=== PATIENT | female | born 1980 | race Hispanic/Latino ===

== ENCOUNTER 2017-11-12 20:10 | Emergency (ER) | payer MEDICAID ==
[2017-11-12 22:01] LABS: #Eosinphils 0.2 thou/uL (0.0-0.7); #Lymphocytes 2.4 thou/uL (1.20-3.40); #Monocytes 0.6 thou/uL (0.11-0.59); #Neutrophils 6.9 thou/uL (1.40-6.50); %Basophils 0.2 % (0.0-1.0); %Eosinophils 2.2 % (0.0-10.0); %Lymphocytes 23.9 % (21.0-51.0); %Monocytes 5.9 % (0.0-10.0); %Neutrophils 67.8 % (42.0-75.0); Hemoglobin 13.4 g/dL (12.0-16.0); Mean Corpuscular HGB CONC 34.4 g/dL (32.0-36.0); Mean Corpuscular Hemoglobin 30.5 pg (27.0-31.0); Mean Corpuscular Volume 88.8 fl (81.0-99.0); Mean Platelet Volume 7.2 fL (7.4-10.4); Platelet Count 286 thou/uL (130-400); RBC Distribution Width 12.2 % (11.5-14.5); Red Blood Cell (RBC) Count 4.39 mill/uL (4.20-5.40); White Blood Cell (WBC) Count 10.2 thou/uL (4.8-10.8)
--- NOTE | 2017-11-13 00:03 | ULT ---
PELVIC ULTRASOUND: 11/12/17 COMPARISON: None. HISTORY: 37-year-old female with positive test and vaginal bleeding. TECHNIQUE: Multiplanar chambers scale sonographic imaging of the pelvis obtained with transabdominal and endovaginal imaging. Ovaries are assessed with color flow and spectral analysis. FINDINGS: The uterus measures 9.0 x 5.3 x 6.4 cm. Right ovary measures 3.0 x 2.0 x 2.5 cm and left ovary measur es 3.1 x 1.9 x 2.6 cm. There is blood flow within both ovaries with no evidence for adnexal or ovaria n mass. There is an intrauterine gestational sac which contains a pole and a yolk sac with a fe darek heart rate of 113 beats per minute. There is a small subchorionic hemorrhage suspected, measuring in the 5 x 11 mm range. No free fluid is seen in the pelvis. Breda-rump length is 0.3 cm, correlating with a 6 week, 0 day gestation. Gestational sac diameter is 2.0 cm, correlating with a 6 week, 6 day gestation. Average age based on ultrasound is 6 weeks, 3 day s with estimated date of delivery on 07/05/18. IMPRESSION: Intrauterine gestation as above. Small subchorionic hemorrhage noted. POS: [facility]
[2017-11-15 19:56] LABS: Chlamydia by PCR Not Detected (NotDetected); GC by PCR Not Detected (NotDetected)
== END 2017-11-13 00:32 | disposition home or self-care (01) ==
LOC: ERS 20:10
DX: O20.0 Threatened abortion (principal); Z3A.01 Less than 8 weeks gestation of pregnancy
CPT/HCPCS: 36415; 76856; 84702; 85025; 86900; 86901; 87491; 87591

== ENCOUNTER 2018-06-28 09:42 | Inpatient (IN) | payer OTHER ==
--- NOTE | 2018-06-28 10:13 | PDOC.LDHP ---
Labor and Delivery H&P Chief complaint: scheduled section HPI: 38yo at 39w0d by LMP for RCS due to Prior CS x 2. No complaints, good FM. No PIH sx. Current gestational age (weeks): 39 Due date: 07/05/18 Dating criteria: last menstrual period Grav: 3 Para: 2 OB History Details: mild anemia, on iron supp Current complications: none Abnormal US findings: No Past Medical History: denies Current medications: pre-gurmeet vitamins, iron Previous surgical history: low tranverse CS, appendectomy Social history: none - Physical Exam Vital signs reviewed and normal: yes General: NAD Heart: RRR Lungs: CTAB Abdomen: gravid Extremeties: no edema FHT: category 1 - OB Labs Blood type: O RH: positive Antibody Screen: negative HIV: negative RPR: negative HEPSAg: negative 1 hour GCT: negative GBS: negative Urine drug screen: negative Rubella: immune
[2018-06-28] MEDS: Lactated Ringer's 1,000 ML IV SCH ×2 (10:25→10:58)
[2018-06-28] MEDS ORDERED: Bicitra 30 ML UDCUP PO SCH (10:27)
[2018-06-28] MEDS ORDERED: Promethazine HCl 25 MG/ML VIAL IM PRN ×2 (10:27→14:29)
[2018-06-28] MEDS ORDERED: CEFAZOLIN/Water 2 GM/20 ML SYRINGE SLOW IVP SCH (10:27)
[2018-06-28] MEDS ORDERED: Ondansetron PF 4 MG/2 ML Vial IVP PRN (10:27)
[2018-06-28 10:42] LABS: Hemoglobin 12.7 g/dL (12.0-16.0); Mean Corpuscular HGB CONC 33.5 g/dL (32.0-36.0); Mean Corpuscular Hemoglobin 29.2 pg (27.0-31.0); Mean Corpuscular Volume 87.1 fL (78.0-98.0); Mean Platelet Volume 8.5 fL (7.4-10.4); Platelet Count 199 thou/uL (130-400); RBC Distribution Width 16.9 % (11.5-14.5); Red Blood Cell (RBC) Count 4.35 mill/uL (4.20-5.40); White Blood Cell (WBC) Count 6.6 thou/uL (4.8-10.8)
[2018-06-28 10:43] VITALS: BMI 34.0
[2018-06-28] MEDS ORDERED: CEFAZOLIN 2 GM/50 ML-DEXTROSE 2 GM in Premix Bag 1 BAG IVPB SCH (11:00)
[2018-06-28 13:09] LABS: HBSAg Index 0.22 S/CO (0-0.99); Hep B Surf Ag Non-Reactive S/CO (NonReactive)
--- NOTE | 2018-06-28 13:38 | PDOC.OPDEL ---
OB Operative/Delivery Note Delivery Dr/Surgeon: Richard Assist: Jonathon Pre-Delivery Diagnosis: scheduled section Procedure/Post Delivery Dx: repeat low transverse CS Weeks gestation: 39 Anesthesia: spinal - Findings A Sex: female Weight: 9 lb 8 oz - 1 min: 8 - 5 min: 9 - Additional Findings/Plan Placenta delivered: spontaneous findings: low transverse hysterotomy without extension, normal uterus, normal tubes, normal ovaries Estimated blood loss: 750cc qbl Post delivery plan: routine recovery
[2018-06-28] MEDS ORDERED: Oxytocin 10 UNITS/ML VIAL ONE (13:39)
[2018-06-28] MEDS ORDERED: Morphine PF 1 MG/ML SYR ONE (13:39)
[2018-06-28] MEDS ORDERED: Ketorolac Tromethamine 30 MG/ML VIAL IVP PRN (14:29)
[2018-06-28] MEDS ORDERED: Naloxone HCl 0.4 mg/ml Vial IV PRN (14:29)
[2018-06-28] MEDS ORDERED: Naloxone HCl 0.4 mg/ml Vial IVP PRN ×2 (14:29)
[2018-06-28] MEDS ORDERED: Promethazine HCl 25 MG SUPP PR PRN (14:29)
[2018-06-28] MEDS ORDERED: Meperidine HCl/PF 25 MG/ML VIAL SLOW IVP PRN (14:29)
[2018-06-28] MEDS ORDERED: HYDROmorphone 2 MG/ML VIAL SLOW IVP PRN (14:29)
[2018-06-28] MEDS ORDERED: L&D-Morphine 4 MG/ML VIAL SLOW IVP PRN (14:29)
[2018-06-28] MEDS ORDERED: diphenhydrAMINE 50 MG/ML VIAL IVP PRN (14:29)
[2018-06-28] MEDS ORDERED: Ondansetron HCl/PF 4 MG/2 ML Vial IVP PRN (14:29)
[2018-06-28] MEDS ORDERED: Eucerin (Mineral Oil/Petrolatum,White) 30 gm Jar TOP PRN (14:29)
[2018-06-28] MEDS ORDERED: Communication Order-Pharmacy FS SCH (14:30)
[2018-06-28] MEDS ORDERED: Ketorolac Tromethamine 30 MG/ML VIAL IVP SCH (14:30)
[2018-06-28 14:47] LABS: Syphilis Antibody Nonreactive (Nonreactive); Syphilis Antibody Index 0.04 S/CO (<1.00 Non-Reactive)
[2018-06-28] MEDS ORDERED: Ketorolac Tromethamine 30 MG/ML VIAL ONE (16:10)
[2018-06-28] MEDS ORDERED: Adacel (T-DAP) 0.5 ML SYRINGE IM ONE (17:29)
[2018-06-28] MEDS ORDERED: Simethicone Chewable 80 MG TAB PO PRN (17:29)
[2018-06-28] MEDS ORDERED: diphenhydrAMINE 25 MG CAP PO PRN (17:29)
[2018-06-28] MEDS ORDERED: Acetaminophen 325 MG TAB PO PRN (17:29)
[2018-06-28] MEDS ORDERED: Lanolin Ointment 7 GM TUBE TOP PRN (17:29)
[2018-06-28] MEDS ORDERED: Bisacodyl 10 MG SUPP PR PRN (17:29)
[2018-06-28] MEDS: Ondansetron PF 4 MG/2 ML Vial IVP PRN ×2 (17:43→23:37)
[2018-06-28] MEDS ORDERED: NS / Oxytocin 40 units/1000ml 1,000 ML ONE (19:13)
[2018-06-29] MEDS ORDERED: HYDROcodone/Acetaminophen 5/325 mg Tablet PO PRN (02:30)
[2018-06-29] MEDS: Docusate Calcium (SURFAK) 240 MG CAP PO SCH ×3 (02:34→21:09)
--- NOTE | 2018-06-29 07:54 | PDOC.PP ---
Post Progress Note Post Day #: 1 PO intake tolerated: yes Flatus: yes Ambulation: yes Vital Signs (12 hours) Temp Pulse Resp BP Pulse Ox 06/29/18 05:45 98.5 F 91 18 100/57 L 06/29/18 00:30 98.0 F 73 18 109/64 06/28/18 22:47 97 06/28/18 20:03 98.2 F 78 16 121/71 97 Weight Weight 211 lb - Physical Examination General: NAD Cardiovascular: RRR Respiratory: non-labored breathing Abdominal: no distention, appropriately TTP Fundus firm & at: umb Extremities: negative homans (B) Skin: CS incision dry & intact Neurological: no gross focal deficits Psychiatric: normal affect Result Diagrams: 06/28/18 10:30 Additional Labs: Post Labs Blood Type O POSITIVE 06/28/18 10:30 Hep Bs Antigen Non-Reactive S/CO (NonReactive) 06/28/18 10:30 - Assessment/Plan POD1 s/p RCS at 39w VSSAF Doing well, appropriate postop milestones, routine advances Postop hgb pending, no sx anemia Rh pos RImm Cont postop care.
[2018-06-29 09:04] LABS: Hemoglobin 11.7 g/dL (12.0-16.0); Mean Corpuscular Hemoglobin 29.1 pg (27.0-31.0); Mean Corpuscular Volume 88.2 fL (78.0-98.0); Mean Platelet Volume 8.4 fL (7.4-10.4); Platelet Count 193 thou/uL (130-400); RBC Distribution Width 16.9 % (11.5-14.5); Red Blood Cell (RBC) Count 4.03 mill/uL (4.20-5.40); White Blood Cell (WBC) Count 10.8 thou/uL (4.8-10.8)
[2018-06-29] MEDS: Ferrous Sulfate 325 MG TAB PO SCH ×2 (09:52→15:34)
--- NOTE | 2018-06-29 10:52 | OP ---
DATE OF PROCEDURE: 06/28/2018 PREOPERATIVE DIAGNOSES: 1. Intrauterine at 39 weeks and 0 days. 2. Prior section x2. POSTOPERATIVE DIAGNOSES: 1. Intrauterine at 39 weeks and 0 days. 2. Prior section x2. PROCEDURE PERFORMED: Repeat low-transverse section via Pfannenstiel skin incision. ANESTHESIA: Spinal. EMAIL DESIGNER SURGEON: Lise Holt MD ESTIMATED BLOOD LOSS: 750 mL. IV FLUIDS: 1 L of crystalloid. URINE OUTPUT: 400 mL of clear urine. COMPLICATIONS: None. PATHOLOGY: None. DRAINS: Moody catheter. FINDINGS: Female infant, cephalic presentation, clear amniotic fluid, weight 9 pounds 8 ounces. Apgars of 8 and 9. Normal uterus, ovaries, and tubes bilaterally. Hysterotomy was without extension and hemostasis was excellent. There was a peritoneal band of adhesions across the lower rectus muscles and the bladder was adherent upon the lower rectus muscles, however, found to be intact on thorough exploration intraoperatively following delivery of the baby and closure of the uterus. OPERATIVE TECHNIQUE: The patient was taken to the operating room, where spinal anesthesia was obtained without difficulty. The patient was prepped and draped in a sterile fashion in the dorsal supine position with a leftward tilt. After ensuring adequacy of anesthesia, a Pfannenstiel skin incision was made and carried down to the underlying subcutaneous tissue with a knife. The fascia was nicked in the midline with the knife and carried laterally with Mccormack scissors. The superior aspect of the fascia was tented with 2 Kochers and dissected off the rectus with Mccormack scissors. At this time, the peritoneum was entered into as there were adhesions of the peritoneum to the anterior abdominal wall. There were no underlying structures that were present in these adhesions. This allowed us to safely dissect the fascia off the rectus and the peritoneum by holding one hand in the abdomen to ensure no underlying structures were in danger. The inferior aspect of the fascia was tented with 2 Kochers and dissected off the rectus down to the pubic symphysis with Mccormack scissors ensuring that it was a preperitoneal approach. There was a band of peritoneum that was adherent in a horizontal fashion in the lower part of the rectus. This was thoroughly examined as there was a small peritoneal defect underlying this, however, there was peritoneum and suspected to be the bladder that was pulled up in this band of adhesions. Therefore, adequate visualization of the abdominal incision in the uterus was made more superiorly and the lateral peritoneum was taken down with a Bovie cautery to allow for this visualization and to not necessarily take down the peritoneal adhesion that possibly contained the bladder. This was completely left alone and did not interfere with the surgery. The Joseph O retractor was placed and the lower uterine segment was incised in a transverse fashion and extended with a Arreguin maneuver. The 's head was brought to the hysterotomy and delivered easily followed by the body. The infant's cord was clamped and the handed to the waiting Farhan team. The cord blood was obtained and the placenta was allowed to spontaneously deliver. The uterus was exteriorized, cleared of all clot and debris, and posterior cul-de-sac was left out. The uterus was placed back into the abdomen and the hysterotomy was repaired with a #1 Monocryl in a running locking fashion with excellent hemostasis noted. The pelvis was then copiously irrigated and suctioned, again noting hemostasis of the hysterotomy. The Joseph O retractor was removed out of the abdomen. The rectus muscles were examined and noted to be hemostatic. The peritoneal band that possibly contained the bladder was thoroughly examined. The Moody bulb was located and brought up into that area of adhesions confirming that likely this was the bladder adherent onto the anterior abdominal wall and rectus muscles. However, there was no defect in the bladder as the Moody bulb was manipulated into the window that was below the adhesion across the rectus muscle. The urine was also noted to be clear and the patient had produced a large amount of urine during the case. At that time, the fascia was reapproximated with a #1 PDS x2 sutures with excellent reapproximation. The subcutaneous tissue was irrigated and cauterized of any bleeders and reapproximated with a 2-0 plain in a running fashion. The skin was closed with 4-0 Monocryl in a subcuticular fashion. Dermabond was applied as well as the pressure dressing. The patient tolerated the procedure well. Sponge and needle counts were correct x2. The patient was taken to the recovery room in stable condition. The patient received Ancef 2 g prior to procedure. Job ID: [id number]
[2018-06-29] MEDS: Prenatal Vitamin 1 TAB PO SCH (11:46)
[2018-06-29] MEDS: Ibuprofen 800 MG TAB PO SCH ×2 (11:46→21:09)
[2018-06-29] MEDS: HYDROcodone/Acetaminophen 5/325 mg Tablet PO PRN (18:44)
[2018-06-30] MEDS: HYDROcodone/Acetaminophen 5/325 mg Tablet PO PRN ×2 (04:45→08:56)
[2018-06-30] MEDS: Ibuprofen 800 MG TAB PO SCH (04:50)
[2018-06-30] MEDS: Ferrous Sulfate 325 MG TAB PO SCH (07:33)
--- NOTE | 2018-06-30 08:32 | PDOC.PP ---
Post Progress Note Post Day #: 2 Subjective: No concerns. Doing well. Minimal lochia and pain. PO intake tolerated: yes Flatus: yes Ambulation: yes Vital Signs (12 hours) Temp Pulse Resp BP 06/30/18 04:38 97.7 F 65 18 115/67 06/30/18 00:43 98.0 F 75 18 105/57 L Weight Weight 211 lb - Physical Examination General: NAD Cardiovascular: RRR Respiratory: non-labored breathing Abdominal: no distention, appropriately TTP Fundus firm & at: below umbilicus Extremities: negative homans (B) Skin: CS incision dry & intact Neurological: no gross focal deficits Psychiatric: A&Ox3, normal affect Result Diagrams: 06/29/18 08:44 Additional Labs: Post Labs Blood Type O POSITIVE 06/28/18 10:30 Hep Bs Antigen Non-Reactive S/CO (NonReactive) 06/28/18 10:30 (1) Status post repeat low transverse section Code(s): Z98.891 - HISTORY OF UTERINE SCAR FROM PREVIOUS SURGERY Status: Acute - Assessment/Plan PPD2 VSSAF Meeting requirements for d/c. D/C home today with .
[2018-06-30] MEDS: Prenatal Vitamin 1 TAB PO SCH (08:56)
[2018-06-30] MEDS: Docusate Calcium (SURFAK) 240 MG CAP PO SCH (08:56)
[2018-06-30 12:07] VITALS: BP 115/68; TEMP 97.6
== END 2018-06-30 13:10 | disposition home or self-care (01) | DRG 788 ==
LOC: L&D 09:42 → 3SW 17:47
PROVIDERS: ADMIT Student in an Organized Health Care Education/Training Program; ATTEND Student in an Organized Health Care Education/Training Program
PROC: 10D00Z1 Extraction of Products of Conception, Low, Open Approach (ICD-10-PCS; principal; 2018-06-28)
DX: O34.211 Maternal care for low transverse scar from previous cesarean delivery (principal); O75.82 Onset (spontaneous) of labor after 37 completed weeks of gestation but before 39 completed weeks gestation, with delivery by (planned) cesarean section; Z3A.39 39 weeks gestation of pregnancy; Z37.0 Single live birth; O99.02 Anemia complicating childbirth; D64.9 Anemia, unspecified
CPT/HCPCS: 36415; 51702; 85027; 86780; 86850; 86900; 86901; 87340; J1885; J2274; J2405; J2590